=== PATIENT | female | born 1960 | race Caucasian/White ===

== ENCOUNTER 2017-09-04 12:30 | Inpatient (IN) | payer BC ==
[2017-08-31 11:44] VITALS: BMI 36.8
[2017-09-14] MEDS ORDERED: TRANEXAMIC ACID 1000 MG/10 ML VIAL IVPUSH ONE (06:51)
[2017-09-14] MEDS ORDERED: CEFAZOLIN 2 GM in DEXTROSE 5%-WATER - 50 ML IVPB ONE (06:51)
[2017-09-14] MEDS ORDERED: ROPIVICAINE 0.2%/MORPH PF/KETOROLAC - 51ML DISP.SYRINGE IA ONE (06:51)
--- NOTE | 2017-09-14 06:58 | HP ---
Admitting History and Physical - Admission Chief Complaint: right hip osteoarthritus x years History of Present Illness: 57-year-old female presents in regard to her right hip. Patient has a long- standing history of right hip osteoarthritis. Patient complains of pain, limited range of motion, difficulty ambulating, and difficulties with activities of daily living excluding putting on her socks and shoes. Patient has failed conservative treatment options including PO medications, activity modification, exercise program, and injections. As patient has failed all conservative treatment measures, patient would like to proceed with surgical intervention -right total hip arthroplasty MAKOplasty. History Source: Patient - Past Medical History Gastrointestinal: Yes: GERD ...LMP Comment: 2014 ...: No - Past Surgical History Additional Past Surgical History: See written history and physical. - Smoking History Smoking history: Former smoker Have you smoked in the past 12 months: Yes If you are a former smoker, when did you quit?: 1987 - Alcohol/Substance Use Hx Alcohol Use: No Home Medications - Allergies Allergies/Adverse Reactions: Allergies Allergy/AdvReac Type Severity Reaction Status Date / Time Iodinated Contrast- Oral and Allergy Severe Swelling Verified 08/31/17 12:11 IV Dye IODOPROPYNYL BUTYLCARBAMATE Allergy Severe Hives Uncoded 08/31/17 12:11 - Home Medications Home Medications: Ambulatory Orders Acetaminophen W/ Codeine #3 [Tylenol # 3 -] 1 tab PO Q6H PRN 08/31/17 Biotin 1,000 mcg PO DAILY 08/31/17 L.acidoph,Paracasei, B.lactis [Probiotic] 1 each PO DAILY 08/31/17 Multivitamins [Tab-A-Vit -] 1 tab PO DAILY 08/31/17 Omeprazole Magnesium [Prilosec Otc] 20 mg PO BID 08/31/17 Review of Systems - Review of Systems Musculoskeletal: reports: Decreased ROM (right hip), Joint Pain (righy hip) Physical Examination Constitutional: Yes: Well Nourished, No Distress Eyes: Yes: Conjunctiva Clear HENT: Yes: Atraumatic, Normocephalic Neck: Yes: Supple Cardiovascular: Yes: Regular Rate and Rhythm Respiratory: Yes: Regular Gastrointestinal: Yes: Soft ...Rectal Exam: Yes: Deferred Musculoskeletal: Yes: Joint Stiffness (right hip) Assessment/Plan 57-year-old female presents in regard to her right hip. Patient has a long- standing history of right hip osteoarthritis. Patient complains of pain, limited range of motion, difficulty ambulating, and difficulties with activities of daily living excluding putting on her socks and shoes. Patient has failed conservative treatment options including PO medications, activity modification, exercise program, and injections. Pros, cons, risks, benefits and alternatives of a right total hip arthroplasty, MAKOplasty were discussed with the patient at length. Patient confirms their understanding. Patient consents to proceed with surgical intervention -right total hip arthroplasty, MAKOplasty.
[2017-09-14] MEDS: PANTOPRAZOLE 40 MG TABLET (FP) PO ONE (07:10)
[2017-09-14] MEDS: GABAPENTIN 300 MG CAPSULE (FP) PO ONE (07:10)
[2017-09-14] MEDS: CELECOXIB 200 MG CAPSULE PO ONE (07:10)
[2017-09-14] MEDS: oxyCODONE HCL 10 MG SUSTAINED ACTING TABLET PO ONE (07:10)
[2017-09-14] MEDS ORDERED: ceFAZolin SODIUM 1 GM VIAL ONE ×2 (07:16→07:26)
[2017-09-14] MEDS ORDERED: VANCOMYCIN 1,000 MG VIAL (RESTRICTED TO ID ONLY) ONE (07:16)
[2017-09-14] MEDS ORDERED: SUCCINYLCHOLINE CHLORIDE 200 MG/10 ML VIAL ONE (07:25)
[2017-09-14] MEDS ORDERED: PROPOFOL 20 ML ONE ×2 (07:25→11:45)
[2017-09-14] MEDS ORDERED: DEXAMETHASONE SOD PHOSPHATE 4 MG/1 ML VIAL ONE (07:26)
[2017-09-14] MEDS ORDERED: ONDANSETRON 4 MG/2 ML VIAL ONE ×2 (07:26→12:52)
[2017-09-14] MEDS ORDERED: BUPIVACAINE HCL/PF 0.5% (5MG/ML) 10 ML VIAL ONE (07:28)
[2017-09-14] MEDS ORDERED: MIDAZOLAM HCL 2 MG/2 ML SINGLE DOSE VIAL ONE ×3 (07:49→10:43)
[2017-09-14] MEDS ORDERED: ROPIVACAINE HCL 0.5% 30ML VIAL ONE (07:49)
[2017-09-14] MEDS ORDERED: DEXAMETHASONE SOD PHOSPHATE/PF 10 MG/ML SDV ONE (07:49)
[2017-09-14] MEDS ORDERED: SODIUM CHLORIDE 0.9% P/F 10 ML VIAL IJ ONE (07:49)
[2017-09-14] MEDS ORDERED: TRANEXAMIC ACID 1000 MG/10 ML VIAL ONE (08:35)
[2017-09-14] MEDS ORDERED: ePHEDrine SULFATE 50 MG/1 ML AMPULE ONE (08:41)
[2017-09-14] MEDS ORDERED: SCOPOLAMINE HYDROBROMIDE 1 PATCH PATCH.TD72 ONE (08:54)
[2017-09-14] MEDS ORDERED: KETAMINE HCL 200 MG/20 ML VIAL ONE (10:43)
[2017-09-14] MEDS: ONDANSETRON 4 MG/2 ML VIAL IVPUSH PRN ×2 (12:57→18:09)
[2017-09-14] MEDS ORDERED: MAGNESIUM HYDROX 2400MG/30ML ORAL SUSPENSION 30 ML CUP PO PRN (13:02)
[2017-09-14] MEDS ORDERED: MAG HYDROX/AL HYDROX/SIMETH 30 ML UNIT-DOSE CUP PO PRN (13:02)
[2017-09-14] MEDS ORDERED: LACTATED RINGERS SOLUTION 1,000 ML IV SCH (13:15)
[2017-09-14] MEDS ORDERED: KETOROLAC TROMETHAMINE 30 MG/1 ML VIAL IVPUSH ONE (13:30)
[2017-09-14] MEDS ORDERED: ACETAMINOPHEN 1000 MG/100 ML VIAL (NON FORMULARY) IVPB ONE (13:30)
[2017-09-14] MEDS ORDERED: traMADol HCL 50 MG TABLET ONE (13:56)
[2017-09-14] MEDS ORDERED: traMADol HCL 50 MG TABLET PO SCH (14:00)
[2017-09-14] MEDS: traMADol HCL 50 MG TABLET PO SCH ×2 (15:19→21:36)
[2017-09-14] MEDS ORDERED: oxyCODONE HCL 5 MG TABLET PO PRN (15:36)
--- NOTE | 2017-09-14 15:36 | SPEC ---
DATE OF OPERATION: 09/14/2017 PREOPERATIVE DIAGNOSIS: Right hip osteoarthritis. POSTOPERATIVE DIAGNOSIS: Right hip osteoarthritis. PROCEDURE: Right total hip replacement with MAKOplasty robotic navigation. ATTENDING: Hina Del Rio MD TRAFFIC SIGNAL REPAIRER: ALFREDO Carcamo ANESTHESIA: Spinal plus sedation. ESTIMATED BLOOD LOSS: 200 mL COMPLICATIONS: None. DISPOSITION: The patient was transferred to the PACU in stable condition. IMPLANTS USED: Boswell Accolade II size 4 femoral component, Dieudonne Tritanium 54-mm acetabular component with 25-mm acetabular screws, and MDM bipolar head ball and liner with inner ceramic +4-mm offset head. INDICATIONS: This is a 57-year-old female who presented to the office complaining of severe right hip pain. She was seen and examined by Dr. Del Rio, was diagnosed with severe right hip osteoarthritis. The patient was initially treated nonoperatively with injections, medications, and physical therapy but continued to have severe right hip pain and ambulatory dysfunction. She was, therefore, indicated for a right total hip replacement with MAKOplasty robotic navigation. The risks, benefits, and alternatives of the procedure were explained to the patient in great detail, and she elected to proceed with the surgery. On the day of surgery, the patient was taken to the operating room and placed on the OR table. Spinal anesthesia was administered by the anesthesiologist. The patient was then positioned in the lateral decubitus position on the table and all bony prominences were padded. An axillary roll was placed. The operative hip was then prepped and draped in the usual sterile fashion and intravenous antibiotics were given for infection prophylaxis. A surgical time-out was then performed with the team, and the patients identity, procedure, side, availability of implants, and the administration of antibiotics were confirmed. An approximately 15-cm longitudinal incision was made through the skin centered on the greater trochanter of the hip. This dissection was carried down through the subcutaneous tissues to the deep fascia. This fascia was then incised and a Cobra was placed around the inferior femoral neck. Electrocautery was used to reflect the anterior 40% of the gluteus medius and minimus starting at the musculotendinous junction and leaving a cuff for closure. This was reflected to reveal the capsule of the hip joint. An anterior capsulectomy was performed and the femoral head and neck were visualized. Grade 4 changes were noted diffusely throughout the joint. At this point, three small stab incisions were made superior to the main incision along the iliac crest. Three self-drilling Steinmann pins were then placed and the Solutionreach pelvic array was attached. Reference points on the limb were then entered into the robotic device and the limb length deficiency, offset, and femoral neck resection level were then calculated by the software. The hip was then dislocated with traction and external rotation. An oscillating saw was used to make the femoral neck cut at the level previously templated, and the femoral head was removed. Attention was then turned to the acetabulum. Retractors were then placed around the acetabulum and the labrum was removed. An acetabular checkpoint pin and the Solutionreach software were used to register the contours of the acetabulum. The acetabulum was then reamed in a single stage to the preoperatively templated size using the Bob robotic arm. The appropriately sized cup was then impacted and had solid fixation as well as the preset inclination and version of 40 and 20 degrees, respectively. A polyethylene liner was then placed in the cup. Attention was then turned back to the femur, which was externally rotated for improved visualization. A femoral neck elevator was used to present the femoral neck cut, a box osteotome was used to enter the femoral canal, and a canal finder was used to go down the femoral shaft. The Bob broaches were used sequentially until the optimal scratch fit was achieved. This correlated with the preoperatively templated size. From here, several different offset head and neck configurations were tested until excellent stability and length were obtained. These measurements were quantified using the Solutionreach software. All trial components were then removed, the femur was copiously irrigated, and the final components were placed. Leg length and stability were checked again and found to be excellent. Irrigation was performed again. Wound closure was started by repairing the abductor muscles with a no. 2 FiberWire stitch in a Krackow configuration passed through bone tunnels in the greater trochanter and tied over a bony bridge. This repair was then reinforced with a 0 V-Loc 180 barbed suture. Next, no. 1 Polysorb and 0 V-Loc 180 were used to close the fascia. The deep subcutaneous tissue was closed with no. 1 Polysorb sutures, and 2-0 Polysorb was used for the superficial subcutaneous tissue. The skin was closed using both 3-0 V-Loc 90 suture in a running subcuticular fashion and SwiftSet skin adhesive. The Bob array and pins were removed from the iliac crest and the stab incision sites were irrigated and closed with 4-0 Polysorb sutures and SwiftSet skin adhesive. Once this was completed, a sterile dressing was applied. The patient was then awakened and taken to the PACU in stable condition. ADDENDUM: After final implants were placed, a 3-minute dilute Betadine lavage was performed according to the [facility] protocol. Following this, the wound was again thoroughly irrigated with normal saline via pulsatile lavage, and wound closure was begun. HINA DEL RIO M.D. BAM/[id number]
[2017-09-14] MEDS: CEFAZOLIN 2 GM/D5W 2 GM/50 ML ML IVPB SCH (18:09)
[2017-09-14] MEDS: ACETAMINOPHEN 325 MG TABLET (FP) PO SCH (19:48)
[2017-09-14] MEDS ORDERED: DEXAMETHASONE SOD PHOSPHATE 10 MG/1 ML VIAL IVPB ONE (20:00)
[2017-09-14] MEDS: SENNOSIDES/DOCUSATE COMBO (SENNA PLUS) TABLET (UD) PO SCH (21:35)
[2017-09-14] MEDS: oxyCODONE HCL 10 MG SUSTAINED ACTING TABLET PO SCH (21:35)
[2017-09-14] MEDS: GABAPENTIN 300 MG CAPSULE (FP) PO SCH (21:35)
[2017-09-14] MEDS: ASCORBIC ACID 500 MG TABLET (FP) PO SCH (21:36)
[2017-09-15] MEDS: ONDANSETRON 4 MG/2 ML VIAL IVPUSH PRN ×2 (00:55→06:36)
[2017-09-15] MEDS: ACETAMINOPHEN 325 MG TABLET (FP) PO SCH ×4 (00:55→18:32)
[2017-09-15] MEDS: oxyCODONE HCL 5 MG TABLET PO PRN ×2 (01:13→18:28)
[2017-09-15] MEDS: CEFAZOLIN 2 GM/D5W 2 GM/50 ML ML IVPB SCH (01:19)
[2017-09-15] MEDS: traMADol HCL 50 MG TABLET PO SCH ×4 (05:00→21:50)
[2017-09-15] MEDS: CELECOXIB 200 MG CAPSULE PO ONE (08:10)
[2017-09-15] MEDS: oxyCODONE HCL 10 MG SUSTAINED ACTING TABLET PO ONE (08:11)
[2017-09-15] MEDS: PANTOPRAZOLE 40 MG TABLET (FP) PO ONE (08:11)
[2017-09-15] MEDS: GABAPENTIN 300 MG CAPSULE (FP) PO ONE (08:11)
[2017-09-15] MEDS: ASPIRIN 325 MG TABLET PO SCH ×2 (08:12→08:40)
[2017-09-15 08:29] LABS: ANION GAP 3 (8-16); BLOOD UREA NITROGEN 14 mg/dl (7-18); CALCIUM 8.7 mg/dl (8.4-10.2); CHLORIDE 103 mmol/L (98-107); CO2 26 mmol/L (22-28); CREATININE 0.7 mg/dl (0.6-1.3); GLUCOSE,RANDOM 125 mg/dl (74-106); SODIUM 132 mmol/L (136-145)
[2017-09-15 08:51] LABS: HEMATOCRIT 29.4 % (32.4-45.2); HEMOGLOBIN 9.9 GM/dl (10.7-15.3); MCH 29.4 pg (25.7-33.7); MCHC 33.6 g/dl (32.0-36.0); MEAN CELL VOLUME 87.4 fl (80-96); PLATELET COUNT 371 K/MM3 (134-434); RBC 3.37 M/mm3 (3.60-5.2); WHITE BLOOD COUNT 12.3 K/mm3 (4.0-10.8)
[2017-09-15] MEDS ORDERED: PANTOPRAZOLE 40 MG TABLET (FP) PO SCH (10:00)
[2017-09-15] MEDS ORDERED: MULTIVITAMINS (DAILY MVI) TABLET (FP) PO SCH ×2 (10:00)
[2017-09-15] MEDS: oxyCODONE HCL 10 MG SUSTAINED ACTING TABLET PO SCH ×2 (10:02→21:50)
[2017-09-15] MEDS: SENNOSIDES/DOCUSATE COMBO (SENNA PLUS) TABLET (UD) PO SCH ×2 (10:02→21:49)
[2017-09-15] MEDS: ASCORBIC ACID 500 MG TABLET (FP) PO SCH ×2 (10:02→21:51)
[2017-09-15] MEDS: GABAPENTIN 300 MG CAPSULE (FP) PO SCH ×2 (10:03→21:50)
--- NOTE | 2017-09-15 10:19 | PN ---
Progress Note, Physician Chief Complaint: S/P right hip CHIKIS replacement under spinal anesthesia History of Present Illness: peripheral nerve block for pain control and oral analgesics, post op day one. - Current Medication List Current Medications: Active Medications Acetaminophen (Tylenol -) 650 mg PO Q6H [facility] Stop: 09/17/17 19:29 Last Admin: 09/15/17 06:35 Dose: 650 mg Al Hydroxide/Mg Hydroxide (Mylanta Oral Suspension -) 30 ml PO Q4H PRN PRN Reason: DYSPEPSIA Ascorbic Acid (Vitamin C -) 500 mg PO BID [facility] Last Admin: 09/15/17 10:02 Dose: 500 mg Aspirin (Asa -) 325 mg PO DAILY@0800 [facility] Last Admin: 09/15/17 08:40 Dose: 325 mg Gabapentin (Neurontin -) 300 mg PO BID [facility] Stop: 09/17/17 21:59 Last Admin: 09/15/17 10:03 Dose: 300 mg Magnesium Hydroxide (Milk Of Magnesia -) 30 ml PO PRN PRN PRN Reason: CONSTIPATION Multivitamins/Minerals/Vitamin C (Tab-A-Vit -) 1 tab PO DAILY [facility] Last Admin: 09/15/17 10:03 Dose: 1 tab Ondansetron HCl (Zofran Injection) 4 mg IVPUSH Q6H PRN PRN Reason: NAUSEA Last Admin: 09/15/17 06:36 Dose: 4 mg Oxycodone HCl (Roxicodone -) 5 mg PO Q3H PRN PRN Reason: PAIN LEVEL 1-5 Oxycodone HCl (Roxicodone -) 10 mg PO Q3H PRN PRN Reason: PAIN LEVEL 6-10 Last Admin: 09/15/17 01:13 Dose: 10 mg Oxycodone HCl (Oxycontin -) 10 mg PO BID [facility] Stop: 09/17/17 15:36 Last Admin: 09/15/17 10:02 Dose: 10 mg Pantoprazole Sodium (Protonix -) 40 mg PO DAILY [facility] Last Admin: 09/15/17 10:02 Dose: 40 mg Senna/Docusate Sodium (Pericolace -) 2 tablet PO BID [facility] Last Admin: 09/15/17 10:02 Dose: 2 tablet Tramadol HCl (Ultram -) 50 mg PO Q6H [facility] Last Admin: 09/15/17 10:02 Dose: 50 mg - Objective Vital Signs: Vital Signs Temperature 98.2 F 09/15/17 06:00 Pulse Rate 97 H 09/15/17 06:00 Respiratory Rate 20 09/15/17 09:00 Blood Pressure 131/60 09/15/17 06:00 O2 Sat by Pulse Oximetry (%) 94 L 09/15/17 09:00 Constitutional: Yes: Well Nourished Cardiovascular: Yes: WNL Respiratory: Yes: WNL Gastrointestinal: Yes: WNL Labs: CBC, BMP 09/15/17 07:30 09/15/17 07:30 Assessment/Plan complaining of nausea and vomiting overnight, better this morning, no other adverse effect, pain controlled. Dept of anesthesia will sign off care at this time.
--- NOTE | 2017-09-15 21:49 | PN ---
Progress Note (short form) - Note Progress Note: Pt seen and examined. Doing well. AVSS Selected Entries 09/15/17 14:00 Temperature 98.3 F Pulse Rate 93 H Respiratory 18 Rate Blood Pressure 119/54 O2 Sat by Pulse 96 Oximetry (%) Oxygen Delivery Room Air Method Laboratory Tests 09/15/17 09/15/17 07:30 07:30 WBC 12.3 H Hgb 9.9 L Hct 29.4 L Plt Count 371 Sodium 132 L Potassium 5.0 Chloride 103 Carbon Dioxide 26 Anion Gap 3 L BUN 14 Creatinine 0.7 Random Glucose 125 H Calcium 8.7 Gen: NAD RLE: c/d/i, NVID A/P 57yo female POD#1 s/p R MAITE PT/OOB D/C home in AM
--- NOTE | 2017-09-15 21:56 | DS ---
Physical Examination Vital Signs: Vital Signs Temperature 98.3 F 09/15/17 14:00 Pulse Rate 93 H 09/15/17 14:00 Respiratory Rate 18 09/15/17 20:03 Blood Pressure 119/54 09/15/17 14:00 O2 Sat by Pulse Oximetry (%) 96 09/15/17 20:03 Labs: CBC, BMP 09/15/17 07:30 09/15/17 07:30 Discharge Summary Reason For Visit: UNILAT PRIMARY OSTEOARTHRITIS RIGHT HIP Current Active Problems Osteoarthritis of right hip (Acute) Procedures: Principal: right MAITE [facility] Course: Admitted for elective surgery. Procedure performed without complications. Pt received postoperative antibiotic prophylaxis and DVT ppx. Ambulated with physical therapy. Stable for discharge home with outpatient followup. Condition: Stable - Instructions Diet, Activity, Other Instructions: Dr Coles - Hip Replacement Instructions Keep the Aquacel dressing on until removed by Dr. Coles in 10-14 days - it is antibacterial and waterproof and you can shower with it on. Call the office for a follow-up appointment with Dr. Coles in 10-14 days. Take one Aspirin 325mg daily for 6 weeks to prevent blood clots in your legs. Resume taking Prilosec twice daily to protect against heartburn and ulcers. Take Cephalexin (antibiotic) 3x/day for 10 days to help prevent skin infection. Take a multivitamin, stool softener, and extra vitamin C supplement daily. Take Zofran every 6 hours as needed for nausea. For pain: *Mild pain (1-3/10): Take 1 Tramadol tablet every 4 hours as needed. Moderate pain (4-6/10): Take 1 Tramadol tablet and 1 Percocet tablet every 4 hours as needed. Severe pain (7-10/10): Take 1 Tramadol tablet and 2 Percocet tablets every 4 hours as needed. Activity: You can put as much weight on the operative leg as you want. For the first 6 weeks, all you need to do is walk around the house, go up/down stairs, and sit down/get up. After 6 weeks when everything is healed (and bone has grown into the implant) you will be sent for more intensive outpatient physical therapy. Always use a walker or cane for balance and to prevent falls. Expect to see swelling/bruising from the hip all the way down to your toes. Wear the compression stocking on the operative side during the day to minimize how much swelling there is in your foot/ankle. Don't wear the stocking at night. You don't have to wear a stocking on the other side. Disposition: VNS/HOME HEALTH CARE - Home Medications Comprehensive Discharge Medication List: Ambulatory Orders Biotin 1,000 mcg PO DAILY 08/31/17 L.acidoph,Paracasei, B.lactis [Probiotic] 1 each PO DAILY 08/31/17 Multivitamins [Multivit ([facility] Formulary)] 1 tab PO DAILY 08/31/17 Omeprazole Magnesium [Prilosec Otc] 20 mg PO BID 08/31/17 Ascorbic Acid [Vitamin C -] 500 mg PO BID tablet 09/15/17 Aspirin [ASA -] 325 mg PO DAILY@0800 tablet 09/15/17 Cephalexin [Keflex] 500 mg PO TID #30 capsule 09/15/17 Ondansetron [Ondansetron Odt] 8 mg PO Q6H PRN #20 tab.rapdis 09/15/17 Oxycodone HCl/Acetaminophen [Percocet 5-325 mg Tablet] 1 - 2 tab PO Q4H PRN #60 tablet MDD 8 09/15/17 Sennosides/Docusate Sodium [Pericolace -] 2 tablet PO BID tablet 09/15/17 traMADol HCL [Ultram -] 50 mg PO Q4H PRN #90 tablet MDD 6 09/15/17
[2017-09-16] MEDS: oxyCODONE HCL 5 MG TABLET PO PRN (00:57)
[2017-09-16] MEDS: ACETAMINOPHEN 325 MG TABLET (FP) PO SCH (00:57)
[2017-09-16] MEDS: traMADol HCL 50 MG TABLET PO SCH (04:10)
[2017-09-16 06:39] VITALS: BP 98/58; PULSE 94; TEMP 97.9
[2017-09-16 08:28] LABS: HEMATOCRIT 26.1 % (32.4-45.2); HEMOGLOBIN 9.1 GM/dl (10.7-15.3); MCH 30.5 pg (25.7-33.7); MCHC 34.7 g/dl (32.0-36.0); MEAN PLT VOLUME 8.1 fl (7.5-11.1); PLATELET COUNT 335 K/MM3 (134-434); RBC 2.97 M/mm3 (3.60-5.2); RDW 13.3 % (11.6-15.6); WHITE BLOOD COUNT 9.9 K/mm3 (4.0-10.8)
--- NOTE | 2017-09-19 16:38 | PATH ---
Surgical Pathology Report Patient Name: HARRIET LOUIS Med. Rec. #: [id number] /Age/Gender: 1960 (Age: 57) / F Account: [id number] Location: [facility] MED-SURG Taken: 09/14/2017 Received: 09/14/2017 Reported: 09/19/2017 Physicians: Lester Coles M.D. Specimen(s) Received RIGHT FEMORAL HEAD Clinical History Right hip osteoarthritis Final Diagnosis RIGHT FEMORAL HEAD, TOTAL HIP REPLACEMENT: DEGENERATIVE JOINT DISEASE. Electronically Signed Katia Juarez M.D. Gross Description Received in formalin, labeled "right femoral head," is a 4.2 x 4.2 x 4.2 cm. femoral head with a 1.7 cm in length portion of femoral neck attached. The margin of resection is smooth. There is a 3.5 cm in greatest dimension area of eburnation identified. The remaining articular surface is bland-yellow and diffusely granular. The underlying trabecular bone is yellow and hard. A sales representative facility services section is submitted in one cassette, following decalcification. /09/15/[address] [facility]09/15/2017
== END 2017-09-16 12:45 | disposition home health service (06) | DRG 470 ==
LOC: FM/S 09-14 05:59 → UNDOADMIN 09-14 05:59
PROVIDERS: ADMIT Student in an Organized Health Care Education/Training Program; ATTEND Student in an Organized Health Care Education/Training Program
PROC: 8E0W0CZ Robotic Assisted Procedure of Trunk Region, Open Approach (ICD-10-PCS; 2017-09-14)
PROC: 0SR904Z Replacement of Right Hip Joint with Ceramic on Polyethylene Synthetic Substitute, Open Approach (ICD-10-PCS; principal; 2017-09-14 09:22)
DX: M16.11 Unilateral primary osteoarthritis, right hip (principal); K21.9 Gastro-esophageal reflux disease without esophagitis; Z87.891 Personal history of nicotine dependence
CPT/HCPCS: 36415; 73502-TC-RT; 80048; 85027; 88304-TC; 88311-TC; 94760; 97116-GP; 97162-GP; J0131; J1100